=== PATIENT | female | born 1965 | race Caucasian/White ===

== ENCOUNTER 2023-03-19 12:00 | Emergency (ER) | payer OTHER, SELFPAY ==
[2023-03-19 12:01] VITALS: BP 104/66; PULSE 87; RESP 16; TEMP 36.4; O2SAT 97
--- NOTE | 2023-03-19 12:19 | CT_ITS ---
STUDY: CT LUMBAR SPINE WITHOUT CONTRAST REASON FOR EXAM: Female, 57 years old. Acute back pain after fall RADIATION DOSAGE (If Supplied By Facility): CTDIvol = ( 13.82 ) mGy, DLP = ( 442.91 ) mGycm TECHNIQUE: The patient was scanned in a multi detector CT scanner. High resolution transaxial imaging was performed. Images were obtained from T12 to the lower coccyx. Sagittal and coronal images were reconstructed. Individualized dose optimization techniques were used for this CT. COMPARISON: None FINDINGS: Normal lumbar lordosis. There is a mild levoscoliosis of the lumbar spine. Normal alignment of the lumbar vertebral bodies in the lateral view. There is an acute, compression fracture affecting the superior endplate of L1. There is scalloping of the superior endplate with loss of height of a proximally 5% there is no retropulsion or involvement of the pedicles or posterior elements. L1-2: Normal endplates. Normal disc height and morphology. Normal bilateral facet joints. Normal central canal and bilateral lateral recesses. Normal bilateral intervertebral neural foramina. L2-3: Normal endplates. Mild disc space narrowing with minimal central disc bulge.. Normal bilateral facet joints. Normal central canal and bilateral lateral recesses. Normal bilateral intervertebral neural foramina. L3-4: Normal endplates. Disc space narrowing with broad-based central disc bulge. The disc bulging combination with facet joint hypertrophy and ligamentum flavum hypertrophy are causing borderline central canal narrowing. There is bilateral foraminal narrowing due to facet joint hypertrophy. L4-5: Normal endplates. Disc space narrowing with broad-based central disc bulge. The disc bulging combination with facet joint hypertrophy and ligamentum flavum hypertrophy are causing borderline central canal narrowing. There is bilateral foraminal narrowing due to facet joint hypertrophy. L5-S1: Normal endplates. Normal disc height and morphology. Normal bilateral facet joints. Normal central canal and bilateral lateral recesses. Normal bilateral intervertebral neural foramina. Normal visualized paraspinous soft tissue structures. CT/Spine Lumbar without Contrast IMPRESSION: Acute compression fracture to the superior endplate of L1 with 5% loss of height. No retropulsion or involvement of the ankles or posterior elements. There is associated soft tissue swelling Degenerative changes at L3-4 and L4 as described No other acute fracture or suspicious osseous lesion Electronically Signed: Kip Mathews MD at 13:24 EDT ,
--- NOTE | 2023-03-19 12:20 | EX.ED.GENINJ ---
HPI History of Present Illness Chief Complaint: Back Detail of Chief Complaint: Fall with injury to her back Informant: patient Narrative Narrative: Patient was seen and department after sustaining a fall. Patient states that she was standing next to a horse who got spooked and she fell backwards landing on her bilateral and then onto her back. She fell on grass. She immediately felt sudden pain in her low back. Patient was helped up and try to ambulate with the assistance of 2 other individuals and then they got her chair. Patient denies any pain rating down her legs. She denies numbness or tingling or weakness of the extremities. She denies striking her head or loss of consciousness. She denies neck pain. She denies chest pain or abdomen pain PFSH PFSH Home Medications hydrocodone-acetaminophen 5-325mg 5mg-325mg 1 tab PO Q4H PRN PRN Pain 2 days #10 TABLETS 03/19/23 [Rx Last Taken Unknown] Allergy/AdvReac Type Severity Reaction Status Date / Time No Known Allergies Allergy Verified 03/19/23 12:01 Social History Smoking Status: Never smoker ROS ROS ED Review of Systems ROS Unobtainable: other Constitutional Constitutional ED: Reports lethargy; Denies chills, fever(s), sweats or weight loss Eyes Eyes: Denies blurry vision, change in vision or diplopia ENT ENT ED: Denies rhinorrhea or sore throat Cardiovascular Cardiovascular: Denies chest pain, orthopnea or racing heartbeat Respiratory/Chest Respiratory/Chest: Denies cough, dyspnea, dyspnea on exertion, orthopnea or sputum Gastrointestinal Gastrointestinal: Denies abdominal pain, diarrhea, nausea or vomiting Genitourinary Genitourinary ED: Denies dysuria, hematuria or urinary frequency Musculoskeletal Musculoskeletal: Reports back pain; Denies arthralgias, myalgias or neck pain Integumentary Denies abscess, Abrasions or rash Neurologic Neurologic: Denies headache(s) or weakness Psychiatric Psychiatric: Denies anxiety, depression or suicidal thoughts Endocrine Endocrinology: Denies polydipsia, polyphagia or polyuria Hematologic/Lymphatic Hematologic/Lymphatic: Denies easy bleeding, easy bruising or lymphadenopathy Allergic/Immunologic Allergic/Immunologic ED: Denies mouth swelling, tongue swelling or urticaria EXAM Physical Exam Const Vital Signs: 03/19/23 12:01 Temperature 97.6 F L Temperature Source Temporal Pulse Rate 87 Respiratory Rate 16 Blood Pressure 104/66 Blood Pressure Mean 78 Pulse Ox 97 Oxygen Delivery Method Room Air Positive well nourished and well developed General Appearance ED: well developed and NAD HEENT Reports TM's clear and moist mucous membranes normocephalic and atraumatic; Negative for trauma or tenderness Tympanic Membrane ED: Yes TM's clear Eyes PERRL and EOMs intact bilaterally General Eye ED: Negative for pale conjunctiva or scleral icterus Neck no lymphadenopathy, supple and no JVD General: Negative for tenderness Chest Wall inspection of chest normal and palpation of chest normal Chest: Negative for tenderness Resp normal respiratory effort and clear to auscultation bilaterally Effort and Inspection: Negative for respiratory distress or pain with movement Auscultation: Negative for rhonchi, wheezes or diminished lung sounds Cardio regular rate, regular rhythm, S1 normal heart sound, S2 normal heart sound and no murmurs Peripheral Pulses: pulses 2+ throughout GI normal to inspection, nondistended, normoactive bowel sounds, soft to palpation, non-tender, non-distended and no masses Back/Spine no CVA tenderness; Negative for normal to inspection or no thoracic nor lumbar tenderness Back/Spine Narrative: Patient with diffuse tenderness over the lumbar spine but more specifically point tender at L4 and L5. Negative straight leg raises. Deep tendon reflexes are plus 2 out of 4 bilaterally at the patella Achilles. Patient has normal L5 extension. Patient has normal sensation to light touch Extremity normal to inspection General Extremety ED: Negative for edema General Extremity: Negative for edema Neuro oriented x3, CN's II-XII intact bilaterally, no sensory deficits noted and gait normal Sensorium / Orientation: awake, alert, oriented to person, oriented to place and oriented to time Motor Exam: strength 5/5 throughout and strength abnormal Psych mental status grossly normal Skin no rashes or lesions noted and no wounds MDM MDM MDM Narrative Medical decision making narrative: Patient presents with a fall and back pain. CT imaging obtained showed compression fracture of L1 endplate with 5% loss of height. Patient did not want a thing for pain here in the department. She will be given a prescription for [place]. Patient advised to follow-up with her primary care physician 5 to 7 days. She is to return if worsening pain, weakness in the extremities, loss of bowel or bladder function, or condition should worsen anyway. Radiography Diagnostic Testing: Clinical Impression(s) from Imaging Studies Lumbar Spine CT 03/19/23 12:19 IMPRESSION: Acute compression fracture to the superior endplate of L1 with 5% loss of height. No retropulsion or involvement of the ankles or posterior elements. There is associated soft tissue swelling Degenerative changes at L3-4 and L4 as described No other acute fracture or suspicious osseous lesion Electronically Signed: Kip Mathews MD at 13:24 EDT Reading Location ID and State: [facility] / [place] , Service support , Discharge Plan Triage Chief Complaint: Back ED Provider: Fernanda Rubi Dx/Rx/DC Orders Clinical Impression: Compression fracture of L1 lumbar vertebra Instructions: Compression Fx, ED Fracture, Vertebral Compression Prescriptions: New hydrocodone-acetaminophen [hydrocodone-acetaminophen] 5-325 mg tablet 1 tab PO Q4H PRN PRN (Reason: Pain) 2 Days Qty: 10 0RF Primary Care Provider: Care Physician,No Primary Referrals: Josué Moran DO [Med Staff - Active Staff] - 5-7 Days NOT,DEFINED [Non-Staff] - Disposition Disposition: Home, Self Care
[2023-03-19 14:00] VITALS: BP 139/59; PULSE 81; RESP 16; O2SAT 100; BMI 23.8
== END 2023-03-19 14:11 | disposition home or self-care (01) ==
PROVIDERS: Emergency Provider Emergency Medicine; Visit Provider Emergency Medicine
DX: M48.56XA Collapsed vertebra, not elsewhere classified, lumbar region, initial encounter for fracture (principal); W18.39XA Other fall on same level, initial encounter
CPT/HCPCS: 72131; 99282

== ENCOUNTER → 2023-03-27 | Outpatient (CLI) | payer SELFPAY, OTHER ==
--- NOTE | 2023-03-27 16:07 | MRI_ITS ---
STUDY: MRI LUMBAR SPINE WITHOUT CONTRAST REASON FOR EXAM: Female, 57 years old patient with low back pain. TECHNIQUE: Standardized fat and water weighted pulse sequences were obtained in the sagittal and axial planes. COMPARISON: CT lumbar spine dated March 23, 2023. FINDINGS: T12-L1: There is mild compression of superior endplate of L1. Normal disc height, signal and morphology. Normal bilateral facet joints. Normal central canal and bilateral lateral recesses. Normal bilateral intervertebral neural foramina. There is straightening of the normal lumbar lordosis. There is no substantial scoliosis. Normal conus medullaris that terminates at the T12 level L1-2: Normal endplates. Normal disc height, signal and morphology. Normal bilateral facet joints. Normal central canal and bilateral lateral recesses. Normal bilateral intervertebral neural foramina. L2-3: There is mild annular disk bulge and osteophyte complex. There is mild degenerative arthropathy of the facet joints. Bilateral neuroforamina are narrowed without MR evidence for nerve impingement. There is no appreciable acquired central canal stenosis. L3-4: There is mild annular disk bulge and osteophyte complex. There is mild degenerative arthropathy of the facet joints. Bilateral neuroforamina are narrowed without MR evidence for nerve impingement. There is mild acquired central canal stenosis. L4-5: There is mild broad central disc protrusion. There appears be a small annular tear. No foramina are mildly narrowed without definite nerve impingement. There is mild degenerative arthropathy of the facet joints. There is thickening of ligamentum flavum. There is mild central acquired canal stenosis. L5-S1: There is mild annular disk bulge and osteophyte complex. There is moderately severe degenerative arthropathy of the facet joints. Bilateral neuroforamina are narrowed without MR evidence for nerve impingement. There is no appreciable acquired central canal stenosis. Normal visualized sacral ala. Normal visualized paraspinous soft tissue structures. MRI/Spine Lumbar (Routine) IMPRESSION: 1. Acute mild compression fracture of L1. 2. Multilevel degenerative changes of lumbar spine with neural foraminal narrowing and central canal stenosis, as described. Electronically Signed: Abimbola Gupta MD at 18:29 EDT ,
== END | disposition home or self-care (01) ==
PROVIDERS: Referring Provider Orthopaedic Surgery; Visit Provider Orthopaedic Surgery
DX: S32.010A Wedge compression fracture of first lumbar vertebra, initial encounter for closed fracture (principal)
CPT/HCPCS: 72148